=== PATIENT | female | born 1955 | race Caucasian/White ===

== ENCOUNTER → 2016-05-23 | Outpatient (CLI) | payer MEDICARE, MEDICAID ==
[~2016-05-23] MED LIST: CELEXA20 MG PO; DEPAKOTE 250MG250 MG PO; LODINE400 MG PO; METOPROLOL25 MG PO; MYRBETRIQ25 MG PO; PRILOSEC20 M1 PO; TRAZODONE HCL150 MG PO; VESICARE10 MG PO; XANAX 0.5MG TA0.5 MG PO
--- NOTE | 2016-05-25 17:34 | RADIOLOGY REPORT PS360 ---
DIG MAMM-SCREEN SUKHJINDER W/CAD CAD Screening COMPARISON: Analog mammograms 03/31/2008 INDICATION: There is no personal or family history of breast cancer. There is been previous biopsy left breast for benign disease. TECHNIQUE: Standard CC and MLO images were obtained. R2 CAD reviewed. FINDINGS: Moderate to marked diffuse heterogenic fibroglandular densities are seen in the central portions of both breasts. There are scattered benign-appearing microcalcifications in each breast. There is a possible asymmetric density just deep to the nipple the right breast with somewhat irregular borders this could certainly be a summation shadow view of the diffusely heterogenic parenchyma pattern. However since are no intervening digital mammograms recommend the patient return for spot compression MLO and CC views better evaluation and possibly ultrasound this proved to be a true lesion. There are no suspicious microcalcifications. IMPRESSION: Diffusely dense parenchymal pattern with possible asymmetric density right breast suggest patient return for additional imaging BI-RADS CATEGORY: 0_Incomplete: Need additional imaging RECOMMENDED FOLLOWUP: ADD ADDITIONAL IMAGING (A letter has been sent to the patient regarding results of the study.)
== END ==
LOC: RAD 09:18
DX: Z12.31 Encounter for screening mammogram for malignant neoplasm of breast (principal)
CPT/HCPCS: G0202

== ENCOUNTER → 2017-03-16 | Outpatient (CLI) | payer MEDICARE, MEDICAID ==
--- NOTE | 2017-03-16 14:03 | RADIOLOGY REPORT PS360 ---
HAND-RT 3 VIEWS HISTORY: RT HAND PAIN ORDERING PHYSICIAN: Hany Mccann MD PATIENT AGE: 61 years COMPARISON: None FINDINGS: No fracture or dislocation. No lytic or blastic change. There is normal mineralization. The joint spaces are well-preserved. No significant degenerative/arthritic changes. No erosive changes evident. Minimal osteoarthritic changes are present at the first metacarpophalangeal joint IMPRESSION: 1. No acute finding. 2. 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
--- NOTE | 2017-03-16 14:03 | RADIOLOGY REPORT PS360 ---
WRIST-3 VIEWS-RT HISTORY: Right wrist pain RT HAND PAIN ORDERING PHYSICIAN: Hany Mccann MD PATIENT AGE: 61 years COMPARISON: None FINDINGS: No fracture or dislocation. No lytic or blastic change. There is normal mineralization.. The joint spaces are well-preserved. No significant degenerative/arthritic changes. No erosive changes evident.. IMPRESSION: Negative wrist
== END ==
LOC: RAD 11:53
DX: M79.641 Pain in right hand (principal); M25.531 Pain in right wrist